=== PATIENT | female | born 1945 ===

== ENCOUNTER 2018-07-24 06:30 | Day surgery (SDC) | payer OTHER ==
[~2018-07-24 06:30] MED LIST: ALDACTAZIDE 501 EACH; ATORVASTATIN CA40 MG; GLIPIZIDE XL5 MG; LOSARTAN POTASS25 MG; METAGLIP; TIAZAC300 MG
== END 2018-07-24 17:25 | disposition home or self-care (01) ==
LOC: CIR.AMB 06:30
DX: K62.82 Dysplasia of anus (principal); K64.8 Other hemorrhoids; K64.4 Residual hemorrhoidal skin tags